=== PATIENT | female | born 1955 | race Caucasian/White ===

== ENCOUNTER 2022-07-08 10:51 | Outpatient (CLI) | payer MEDICARE, BC, SELFPAY ==
--- NOTE | 2022-07-08 10:59 | MM_ITS ---
WS: [id number] BILATERAL SCREENING DIGITAL TOMOSYNTHESIS MAMMOGRAM WITH CAD HISTORY: SCREENING COMPARISON: 12/02/2019, 09/27/2018 Bilateral CC and MLO views with tomosynthesis and synthetic mammography submitted. Computer aided det ection analyzed. Breast composition: There are scattered areas of fibroglandular density. No suspicious masses, microc alcifications or architectural distortion. 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 Additional very small benign scattered calcifications. MM/[place] [id number] IMPRESSION: BI-RADS: 2-Benign FOLLOW UP: 1 Year Follow-up
== END 2022-07-08 10:52 | disposition home or self-care (01) ==
LOC: RAD 10:51
PROVIDERS: Visit Provider Family Medicine
DX: Z12.31 Encounter for screening mammogram for malignant neoplasm of breast (principal)
CPT/HCPCS: 77063; 77067

== ENCOUNTER 2023-01-12 12:47 | Outpatient (CLI) | payer MEDICARE, BC, SELFPAY ==
--- NOTE | 2023-01-12 | ECG_ITS ---
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 Interpretive Statements NAME OF STUDY: DOBUTAMINE STRESS ECHOCARDIOGRAM INDICATION: [Chest Pain ] PROCEDURE: At the baseline, the blood pressure was [125/90 mmHg] with a heart rate of 60 bpm. 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 The dobutamine was infused over a period of [ 10 minutes and 26 seconds]. The maximum heart rate obtained was [136 bpm] ([85] % of the maximum predicted heart rate). The blood pressure at that time was 126/78 mmHg. The patient did not have any chest pain or any significant electrocardiogram changes with the dobutamine infusion. The physical examination remained unchanged. No arrhythmias were seen on the monitor. During the recovery phase, the patient did not have any specific symptoms. The blood pressure at the end of the recovery phase was 116/70 mm Hg with a heart rate of 90 per minute. CONCLUSION: 1. No EKG changes with dobutamine infusion. 2. Normal blood pressure and heart rate response with dobutamine infusion. 3. No arrhythmias noted. 4. Echocardiographic portion of the study will be reported separately. Electronically Signed On 01-19-2023 16:23:53 CDT by Linsey Reyez M.D. [email or web address]
[2023-01-12 12:55] VITALS: BMI 22.8
--- NOTE | 2023-01-12 12:56 | USCV_ITS ---
Columba Dinh Age: 67 Gender: F : 1955 Exam Date: 01/12/2023 13:13 Ordering Phys: Johnny Singh MD Technologist: Jesus Arshad [place] [facility] [place]: CHEST PAIN Rhythm: Sinus Patient History: NONE Cardiac Medications: NONE Medications in past 24 hours: NONE Contrast: Total Dose (mL): Stress Results Protocol: Pharmacologic Peak Dose (???g/kg/min): 40 Duration (min:sec): 10.26 Atropine:(mg) Target HR: 129 Double Product: 12577 Resting HR: 59 Resting BP: 125 / 90 Peak HR: 130 Peak BP: 144 / 90 Max Predicted HR: 152 86 % Max Predicted HR Stress Summary: NO SYMPTOMS REPORTED BP Response: NORMAL Reason for Termination: TARGET HR REACHED Cardiac Symptoms: NONE ECG Analysis Resting EKG: Stress EKG: Arrhythmia: MEASUREMENTS (Male/Female) Normal Values FINDINGS 1. At the baseline, the patient's blood pressure was 125/90 mm Hg with a heart rate of 59 beats per minute. The electrocardiogram showed normal sinus rhythm with normal ST-Ts. The chest examination revealed normal breath sounds with no rales or rhonchi. The CVS examination revealed normal heart sounds with no S3 or S4. 2. The Dobutamine was infused over 10.26 minutes. The maximum heart rate obtained was per minute. The patient attained 85% of the maximum predicted heart rate. The blood pressure at the end of the infusion was 144/90 mmHg. Patient did not have any chest pain or any significant electrocardiogram changes with the Dobutamine infusion. The physical examination remained unchanged. No arrhythmias were seen on the monitor. 3. At the baseline, the patient's echocardiogram revealed normal cardiac chamber sizes with normal LV ejection fraction of 65%. Segmental wall motion analysis revealed no wall motion abnormality. There were no intracardiac masses. No significant pericardial effusion. Aortic root appears to be upper limits of normal size. 4. With the low and the peak Dobutamine infusion, there was good augmentation of all the segments with no Dobutamine-induced wall motion abnormalities. 5. During the recovery phase, the patient did not have any symptoms or any EKG changes. The blood pressure at the end of the recovery phase was 116/70 mm Hg with a heart rate of 90 beats per minute. 6. The echocardiogram during the recovery phase also did not reveal any new changes. CONCLUSIONS 1. Normal electrocardiogram response to Dobutamine infusion. 2. Normal echocardiographic response to Dobutamine infusion. 3. No Dobutamine-induced chest pain or cardiac arrhythmia. 4. Clinical correlation is recommended. Linsey Reyez MD (Electronically Signed) Final Date: 19 January 2023 16:29 S
[2023-01-12] MEDS: DOBUTtamine 200 MG in sodium chloride 0.9% 34 ML 9.05 MG IV (13:20)
[2023-01-12 13:44] VITALS: BP 116/70; PULSE 83
== END 2023-01-12 12:48 | disposition home or self-care (01) ==
PROVIDERS: PCP Family Medicine; Visit Provider Family Medicine
DX: R07.9 Chest pain, unspecified (principal)
CPT/HCPCS: 36415; 93017; 93350; 96374; J1250; J7050

== ENCOUNTER 2023-04-14 10:13 | Outpatient (CLI) | payer MEDICARE, BC, SELFPAY ==
--- NOTE | 2023-04-14 10:24 | CT_ITS ---
WS: [id number] CT ABDOMEN PELVIS TECHNIQUE: Contrast-enhanced CT of the abdomen and pelvis with coronal and sagittal reformatted image s. CLINICAL INFORMATION: UPPER ABDOMINAL PAIN COMPARISON: None. DLP: 297.[address] scans at [facility] use at least one of these dose optimization techniques: automated e xposure control; mA and/or kV adjustment per patient size (includes targeted exams where dose is matc hed to clinical indication); or iterative reconstruction. FINDINGS: Lung bases are well aerated. Tiny noncalcified nodule RIGHT middle lobe measuring 3 mm. Diffuse fatty infiltration of the liver. Dilatation of the common bile duct likely physiologic postcholecystectomy . Minimal intrahepatic biliary ductal dilatation. Normal portal vein and splenic vein. Normal pancrea tic parenchymal enhancement. Adrenal glands are normal. Normal renal parenchymal enhancement. No hydr onephrosis. Small RIGHT renal cyst. Cortical scarring RIGHT kidney. Celiac and SMA are patent. Normal caliber abdominal aorta. Mild constipation. No evidence of small or large bowel obstruction. Normal GE junction. Mild spondyli tic changes lumbar spine with disc space narrowing L3-L5. No other suspicious findings. Prior cholecystectomy. Prior hysterectomy. IMPRESSION: 1. Prior cholecystectomy with dilatation of the common bile duct and mild intrahepatic biliary ducta l dilatation most likely physiologic. Recommend correlation with biliary function studies. This could be further evaluated with MRCP if additional concern. 2. No hydronephrosis in either kidney. 3. Mild pancolonic constipation. 4. Tiny 3 mm nodule in the RIGHT middle lobe. 5. No other suspicious findings.
[2023-04-14 11:33] LABS: Blood Urea Nitrogen 13 mg/dL (8-23); Glomerular Filtration Rate 83.2 mL/min (90-130)
== END 2023-04-14 10:14 | disposition home or self-care (01) ==
LOC: RAD 10:14
PROVIDERS: PCP Family Medicine; Visit Provider Family Medicine
DX: R10.10 Upper abdominal pain, unspecified (principal); K83.8 Other specified diseases of biliary tract; K59.09 Other constipation; R91.1 Solitary pulmonary nodule; Z90.49 Acquired absence of other specified parts of digestive tract
CPT/HCPCS: 74177; 82565; 84520; Q9967